=== PATIENT | female | born 1955 | race Caucasian/White ===

== ENCOUNTER 2019-05-05 11:25 | Inpatient (IN) | payer OTHER ==
[2019-05-04 08:44] VITALS: BMI 25.7
[2019-05-05 12:27] LABS: INR 0.87 (0.83-1.09); PROTHROMBIN TIME (PATIENT) 10.3 SEC (9.7-13.0)
[2019-05-05 12:30] LABS: ACTIVATED PTT 30.9 SECONDS (25.2-36.5)
[2019-05-05] MEDS ORDERED: HEPARIN NA (PORCINE) 5,000 UNITS/ML 1ML VIAL ONE ×2 (14:50→17:39)
[2019-05-05] MEDS ORDERED: THROMBIN (BOVINE) 5,000 UNIT VIAL TP ONE ×3 (14:50→19:34)
[2019-05-05] MEDS ORDERED: ROCURONIUM BROMIDE 50 MG/5 ML VIAL ONE (17:39)
[2019-05-05] MEDS ORDERED: fentaNYL CITRATE 250 MCG/5 ML VIAL ONE ×2 (17:39)
[2019-05-05] MEDS ORDERED: PROPOFOL 20 ML ONE ×5 (17:39)
[2019-05-05] MEDS ORDERED: SUCCINYLCHOLINE CHLORIDE 200 MG/10 ML SYRINGE ONE (17:48)
[2019-05-05] MEDS ORDERED: VANCOMYCIN 1,000 MG VIAL (RESTRICTED TO ID ONLY) IVPB ONE (18:20)
[2019-05-05] MEDS ORDERED: ceFAZolin SODIUM 1 GM VIAL IVPB ONE ×2 (18:20→21:15)
[2019-05-05] MEDS ORDERED: MIDAZOLAM HCL 2 MG/2 ML SINGLE DOSE VIAL ONE (18:23)
[2019-05-05] MEDS ORDERED: TRANEXAMIC ACID 1000 MG/10 ML VIAL ONE ×2 (18:32→19:17)
[2019-05-05] MEDS ORDERED: hydrALAZINE HCL 20 MG/ML VIAL ONE (19:20)
[2019-05-05] MEDS ORDERED: ONDANSETRON 4 MG/2 ML VIAL ONE (19:59)
[2019-05-05] MEDS ORDERED: KETOROLAC TROMETHAMINE 30 MG/1 ML VIAL ONE (19:59)
[2019-05-05] MEDS ORDERED: DEXAMETHASONE SOD PHOSPHATE 4 MG/1 ML VIAL ONE ×3 (19:59→20:00)
[2019-05-05] MEDS ORDERED: VANCOMYCIN 1,000 MG VIAL (RESTRICTED TO ID ONLY) ONE (20:00)
[2019-05-05] MEDS ORDERED: DESFLURANE GAS 240 ML BOTTLE IH ONE (20:11)
[2019-05-05] MEDS ORDERED: ceFAZolin SODIUM 1 GM VIAL ONE (20:53)
[2019-05-05] MEDS ORDERED: ONDANSETRON 4 MG/2 ML VIAL IVPUSH PRN ×2 (21:35→21:54)
[2019-05-05] MEDS ORDERED: PROMETHAZINE HCL 25 MG/1 ML VIAL IVPB PRN (21:35)
[2019-05-05] MEDS ORDERED: oxyCODONE HCL 5 MG TABLET PO PRN ×3 (21:35→21:54)
[2019-05-05] MEDS ORDERED: HYDROmorphone *PCA* 10MG/50ML DISP.SYRIN PCA ONE (21:40)
[2019-05-05] MEDS ORDERED: HYDROmorphone *PCA* 10MG/50ML DISP.SYRIN PCA SCH (21:45)
[2019-05-05] MEDS ORDERED: CYCLOBENZAPRINE HCL 10 MG TABLET (FP) PO PRN (21:51)
[2019-05-05] MEDS ORDERED: LACTATED RINGERS SOLUTION 1,000 ML IV SCH (22:00)
[2019-05-05] MEDS ORDERED: PATIENT'S OWN MEDICATION (NON-FORMULARY) (Ibandronate Sodium [Ibandronate Sodium] 150 MG) PO SCH (22:00)
--- NOTE | 2019-05-05 22:07 | PN ---
Progress Note (short form) - Note Progress Note: 64F s/p C4-C5, C5-C6 discectomies; C4, C5, C6 partial corpectomies; C4-C5, C5- C6 anterior cervical decompression and instrumented fusion POD #0. C6-C7 ACDF cancelled due to osteopenia & blood loss. -Admit to ICU x 24 hrs. for airway observation. -Maintain head of bed 30-45 degrees. -Pain medication: per anaesthesia team; NO NSAID's. -DVT PPx: -Mechanical only: LORI's, SCD's. -Post-op Ancef x 2 doses. -Decadron 10mg IV x 1 01/04/2019 at 7am. -f/u AM labs. -Incentive spirometry. -PT/OT/Rehab, OOB. -PWB B/L UE: -No heavy lifting, bending or twisting (5lbs max). -WBAT B/L LE. -d/c Ko catheter at 9AM tomorrow (05/06/2019); f/u TOV (8 hours max). -Keep dressing clean & dry. -Advance diet as tolerated. -B/L UE & LE NV checks. -Care per ICU & primary medical hospitalist Dr. Pritesh Mckeon. -Discharge planning: f/u [facility] [place] office Friday04/13/2018; call for appointment; . Kal Long MD (Orthopaedic Surgery).
--- NOTE | 2019-05-05 22:13 | OP ---
Operative Note - Note: Operative Date: 05/05/19 Pre-Operative Diagnosis: 1. 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 2. 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 3. Multi- level segmental instability cervical spine. 4. Cervical spinal stenosis. 5. Frequent falls Operation: 1. C4-C5, C5-C6 anterior cervical discectomy and fusion. 2. C4, C5, C6 partial corpectomies. 3. C4-C5, C5-C6 intervertebral mechanical devices. 4. C4-C6 anterior instrumentation. 5. Bone autograft. 6. Bone allograft Findings: Severe osteopenia; soft bone. Implants: Cages: C4-C5: Fortilink Tetrafuse, #10. C5-C6: Fortilink Tetrafuse, #8. Plate: Precision Spine Slimplicity, 29mm. Screws: 6 x 4x12mm Post-Operative Diagnosis: Same as Pre-op Surgeon: Kal Long Medical Logistics Specialist: Kareem Long Anesthesiologist/RN INTERNAL MEDICINE: Aime Baker Anesthesia: General Specimens Removed: C4-C5, C5-C6 disc Estimated Blood Loss (mls): 100 Fluid Volume Replaced (mls): 2,100 (Crystalloid) Operative Report Dictated: Yes
[2019-05-05] MEDS: ACETAMINOPHEN 1000 MG/100 ML VIAL (NON FORMULARY) IVPB SCH (22:20)
--- NOTE | 2019-05-05 23:49 | CONSULT ---
Consultation: CONSULT Service: ICU resident HISTORY OF PRESENT ILLNESS: 64yo F with h/o chronic neck/back pain, hypothyroidism, HLD who presents to the ICU s/p anterior approach C4-5, C5-6 discectomies and corpectomies and fusion with Dr. Long. Pt reports post-operative recovery going well without any significant pain. Pt reports she's had longstanding neck pain with reduction on upper arm ROM and intermittent parasthesias of her b/l hands. Currently she reports that the parasthesias are remitted and that she can move her upper arms better. Pt denies any nausea currently, chest pain, shortness of breath. Her pain is well controlled. Intraoperatively pt received ~2L IVF, no cellsaver, and had an estimated ~150cc of EBL. REVIEW OF SYSTEMS: As per HPI. PHYSICAL EXAMINATION Vital Signs - 24 hr 05/05/19 05/05/19 05/05/19 12:51 12:55 21:00 Temperature 97.8 F Pulse Rate 61 Respiratory 18 Rate Blood Pressure 125/70 O2 Sat by Pulse 99 100 Oximetry (%) 05/05/19 05/05/19 05/05/19 21:28 21:40 21:55 Temperature 98.3 F Pulse Rate 81 75 74 Respiratory 16 16 16 Rate Blood Pressure 127/61 123/67 125/68 O2 Sat by Pulse 98 99 100 Oximetry (%) 05/05/19 05/05/19 05/05/19 22:10 22:25 22:40 Temperature 98.2 F Pulse Rate 75 72 75 Respiratory 16 14 16 Rate Blood Pressure 125/68 123/64 111/65 O2 Sat by Pulse 100 100 100 Oximetry (%) *pt examined in PACU post-operatively* GENERAL: NAD, Awake, alert, and fully oriented, HEENT: NC/AT, EOMI, CROW, MMM NECK: Bandage noted on anterior neck without any drainage noted. No JVD appreciated LUNGS: CTA bilaterally. No wheezes, and no crackles. No accessory muscle use. HEART: RRR, normal S1 and S2 without murmur ABDOMEN: Soft, NT/ND, normoactive bowel sounds, no guarding. No hepatomegaly. EXTREMITIES: 2+ DP pulses, warm, well-perfused. No calf tenderness. No peripheral edema. NEUROLOGICAL: children's court magistrate II-XII intact. Strength in handgrip 5/5 symmetrically, lower extremity strength 5/5 b/l. Sensation intact throughout. Normal speech. Gait not tested PSYCHIATRIC: Cooperative. Good eye contact. Appropriate mood and affect. SKIN: Warm, dry, no rashes noted. Laboratory Results 05/05/19 05/05/19 05/05/19 11:43 11:43 13:30 PT with INR 10.30 INR 0.87 PTT (Actin FS) 30.9 Blood Type AB POSITIVE AB POSITIVE Antibody Screen Negative Active Medications Generic Name Dose Route Start Last Admin Trade Name Freq PRN Reason Stop Dose Admin Acetaminophen 1,000 mg 05/05/19 22:00 05/05/19 22:20 Ofirmev Injection - IVPB 05/06/19 14:01 1,000 mg Q8H JAGUAR Administration Cholecalciferol 5,000 unit 05/06/19 10:00 Vitamin D3 - PO DAILY JAGUAR Cyanocobalamin 1,000 mcg 05/06/19 10:00 Vitamin B12 - PO DAILY JAGUAR Cyclobenzaprine HCl 10 mg 05/05/19 21:51 Flexeril - PO PRN PRN INSOMNIA Dexamethasone Sodium Phosphate 10 mg 05/06/19 06:00 Decadron Injection - IVPUSH 05/06/19 06:01 ONCE ONE Fentanyl 50 mcg 05/05/19 21:35 Sublimaze Injection - IVPUSH [id number] PRN PAIN-PACU ORDER X 4 DOSES ONLY Fluticasone Propionate 1 spray 05/06/19 10:00 Flonase - NS DAILY JAGUAR Hydromorphone HCl 10 mg 05/05/19 21:45 05/05/19 21:40 Dilaudid Size Stamper - RAW CHEESE WORKER 05/12/19 21:36 10 mg RAW CHEESE WORKER JAGUAR Administration Protocol Cefazolin Sodium 1 gm/ 50 mls @ 100 mls/hr 05/06/19 05:00 Dextrose IVPB 05/06/19 13:29 Q8H JAGUAR Lactated Ringer's 1,000 mls @ 125 mls/hr 05/05/19 22:00 05/05/19 23:03 Lactated Ringers Solution IV 125 mls/hr ASDIR JAGUAR Administration Levothyroxine Sodium 75 mcg 05/06/19 07:00 Synthroid - PO DAILY@0700 JAGUAR Non-Formulary Medication 200 mcg 05/06/19 10:00 Selenium [Selenium] PO DAILY JAGUAR Ondansetron HCl 4 mg 05/05/19 21:35 Zofran Injection IVPUSH Q6H PRN NAUSEA AND/OR VOMITING Ondansetron HCl 4 mg 05/05/19 21:54 Zofran Injection IVPUSH Q6H PRN NAUSEA AND/OR VOMITING Oxycodone HCl 5 mg 05/05/19 21:54 Roxicodone - PO Q4H PRN PAIN LEVEL 1-5 Oxycodone HCl 10 mg 05/05/19 21:54 Roxicodone - PO Q4H PRN PAIN LEVEL 6-10 Promethazine HCl 12.5 mg 05/05/19 21:35 Phenergan Injection - IVPB Q6H PRN NAUSEA-FOR RESCUE AFTER 15 MIN Rosuvastatin Calcium 5 mg 05/06/19 10:00 Crestor - PO DAILY JAGUAR ASSESSMENT/PLAN: Cervical spine discectomies with corpectomies (anterior approach) HLD Hypothyroidism --Monitor in ICU for airway --HOB elevation 30 degrees --Pain control per RAW CHEESE WORKER pump/anesthesia, tylenol available PRN if needed --Will continue post-operative ABX --Routine AM labs ordered --D/c berta approximately at 9am tomorrow --Neuro checks --Will continue home Crestor 5mg PO HS --Will continue home Synthroid 75mcg qdaily FEN: Fluids: None currently Nutrition: Will advance as tolerated PPX: DVT - SCDs GI - Not indicated Dispo: Monitor in ICU for airway Aime Hogan, DO - IM PGY-2 Visit type - Emergency Visit Emergency Visit: Yes ED Registration Date: 05/05/19 Care time: The patient presented to the Emergency Department on the above date and was hospitalized for further evaluation of their emergent condition. - New Patient This patient is new to me today: Yes Date on this admission: 05/06/19 - Critical Care Critical Care patient: Yes Total Critical Care Time (in minutes): 35 Critical Care Statement: The care of this patient involved high complexity decision making to prevent further life threatening deterioration of the patient 's condition and/or to evaluate & treat vital organ system(s) failure or risk of failure.
[2019-05-06] MEDS ORDERED: DEXTROSE 5%-WATER - 50 ML IVPB ONE ×2 (05:18→11:56)
[2019-05-06] MEDS ORDERED: ceFAZolin SODIUM 1 GM VIAL ONE ×2 (05:18→11:56)
[2019-05-06] MEDS: ACETAMINOPHEN 1000 MG/100 ML VIAL (NON FORMULARY) IVPB SCH (05:34)
[2019-05-06] MEDS: CEFAZOLIN 1 GM in DEXTROSE 5%-WATER - 50 ML IVPB SCH ×2 (05:34→12:17)
[2019-05-06] MEDS ORDERED: DEXAMETHASONE SOD PHOSPHATE 10 MG/1 ML VIAL IVPUSH ONE (06:00)
[2019-05-06 06:40] LABS: HEMOGLOBIN 13.5 GM/dL (10.7-15.3); MCHC 32.2 g/dl (32.0-36.0); MEAN CELL VOLUME 90.1 fl (80-96); MEAN PLT VOLUME 9.5 fl (7.5-11.1); PLATELET COUNT 226 K/MM3 (134-434); RBC 4.66 M/mm3 (3.60-5.2); RDW 13.3 % (11.6-15.6); WHITE BLOOD COUNT 11.7 K/mm3 (4.0-10.0)
[2019-05-06 06:46] LABS: CALCIUM 8.9 mg/dL (8.5-10.1); CREATININE 0.7 mg/dL (0.55-1.3); MAGNESIUM 2.2 mg/dL (1.8-2.4); POTASSIUM 4.5 mmol/L (3.5-5.1)
[2019-05-06] MEDS ORDERED: LEVOTHYROXINE NA 75 MCG TABLET (FP) PO SCH (07:00)
--- NOTE | 2019-05-06 08:33 | PN ---
Physical Exam: SUBJECTIVE: Patient seen and examined at bedside this morning. She is POD #1 s/ p C4-C5, C5-C6 anterior cervical discectomy and fusion, C4, C5, C6 partial corpectomies, C4-C5, C5-C6 intervertebral mechanical devices, C4-C6 anterior instrumentation. Patient afebrile overnight. No acute overnight events. Patient tolerating diet this morning OBJECTIVE: Vital Signs Period Temp Pulse Resp BP Sys/Egan Pulse Ox Last 24 Hr 97.6 F-98.3 F 61-81 12-20 102-127/61-70 98-100 GENERAL: The patient is awake, alert, and fully oriented, in no acute distress. HEAD: Normocephalic, atraumatic EYES: PERRL, extraocular movements intact, sclera anicteric, conjunctiva clear. ENT: Oropharynx clear without exudates, moist mucous membranes. NECK: Trachea midline, supple. Rigid cervical collar in place. No stridor auscultated bilaterally. LUNGS: Breath sounds equal, clear to auscultation bilaterally. No wheezes, no crackles. No accessory muscle use. HEART: Regular rate and rhythm, S1, S2 without murmur, rub or gallop. ABDOMEN: Soft, nontender, nondistended. Normoactive bowel sounds. No guarding, no rebound tenderness. No hepatosplenomegaly appreciated. EXTREMITIES: 2+ radial, dorsalis pedis pulses bilateral upper and lower extremities. Warm, well-perfused. No lower extremity edema. NEUROLOGICAL: Cranial nerves II through XII grossly intact. Normal speech. Strength 5/5 bilateral upper and lower extremities. PSYCH: Normal mood, normal affect upon my encounter today. SKIN: Warm, dry. Surgical area bandaged clean, dry. Laboratory Results - last 24 hr 05/05/19 05/05/19 05/05/19 11:43 11:43 13:30 WBC RBC Hgb Hct MCV MCH MCHC RDW Plt Count MPV PT with INR 10.30 INR 0.87 PTT (Actin FS) 30.9 Sodium Potassium Chloride Carbon Dioxide Anion Gap BUN Creatinine Est GFR (CKD-EPI)AfAm Est GFR (CKD-EPI)NonAf Random Glucose Calcium Magnesium Blood Type AB POSITIVE AB POSITIVE Antibody Screen Negative 05/06/19 05/06/19 05:23 05:23 WBC 11.7 H RBC 4.66 Hgb 13.5 Hct 42.0 MCV 90.1 MCH 29.0 MCHC 32.2 RDW 13.3 Plt Count 226 MPV 9.5 PT with INR INR PTT (Actin FS) Sodium 138 Potassium 4.5 Chloride 107 Carbon Dioxide 24 Anion Gap 7 L BUN 14 Creatinine 0.7 Est GFR (CKD-EPI)AfAm 106.12 Est GFR (CKD-EPI)NonAf 91.56 Random Glucose 105 Calcium 8.9 Magnesium 2.2 Blood Type Antibody Screen Active Medications Generic Name Dose Route Start Last Admin Trade Name Freq PRN Reason Stop Dose Admin Acetaminophen 1,000 mg 05/05/19 22:00 05/06/19 05:34 Ofirmev Injection - IVPB 05/06/19 14:01 1,000 mg Q8H JAGUAR Administration Cholecalciferol 5,000 unit 05/06/19 10:00 Vitamin D3 - PO DAILY JAGUAR Cyanocobalamin 1,000 mcg 05/06/19 10:00 Vitamin B12 - PO DAILY JAGUAR Cyclobenzaprine HCl 10 mg 05/05/19 21:51 Flexeril - PO PRN PRN INSOMNIA Fentanyl 50 mcg 05/05/19 21:35 Sublimaze Injection - IVPUSH [id number] PRN PAIN-PACU ORDER X 4 DOSES ONLY Fluticasone Propionate 1 spray 05/06/19 10:00 Flonase - NS DAILY JAGUAR Hydromorphone HCl 10 mg 05/05/19 21:45 05/05/19 21:40 Dilaudid Qc Tech - EXTENSION CLERK 05/12/19 21:36 10 mg EXTENSION CLERK JAGUAR Administration Protocol Cefazolin Sodium 1 gm/ 50 mls @ 100 mls/hr 05/06/19 05:00 05/06/19 05:34 Dextrose IVPB 05/06/19 13:29 100 mls/hr Q8H JAGUAR Administration Lactated Ringer's 1,000 mls @ 125 mls/hr 05/05/19 22:00 05/05/19 23:03 Lactated Ringers Solution IV 125 mls/hr ASDIR JAGUAR Administration Levothyroxine Sodium 75 mcg 05/06/19 07:00 05/06/19 06:44 Synthroid - PO 75 mcg DAILY@0700 JAGUAR Administration Non-Formulary Medication 200 mcg 05/06/19 10:00 Selenium [Selenium] PO DAILY JAGUAR Ondansetron HCl 4 mg 05/05/19 21:35 Zofran Injection IVPUSH Q6H PRN NAUSEA AND/OR VOMITING Ondansetron HCl 4 mg 05/05/19 21:54 Zofran Injection IVPUSH Q6H PRN NAUSEA AND/OR VOMITING Oxycodone HCl 5 mg 05/05/19 21:54 Roxicodone - PO Q4H PRN PAIN LEVEL 1-5 Oxycodone HCl 10 mg 05/05/19 21:54 Roxicodone - PO Q4H PRN PAIN LEVEL 6-10 Promethazine HCl 12.5 mg 05/05/19 21:35 Phenergan Injection - IVPB Q6H PRN NAUSEA-FOR RESCUE AFTER 15 MIN Rosuvastatin Calcium 5 mg 05/06/19 10:00 Crestor - PO DAILY JAGUAR ASSESSMENT/PLAN: Patient is a 64 year old female with history of hyperlipidemia, hypothyroidism admitted to ICU s/p C4-C5, C5-C6 anterior cervical discectomy and fusion, C4, C5 , C6 partial corpectomies, C4-C5, C5-C6 intervertebral mechanical devices, C4- C6 anterior instrumentation. Neurological -Patient is awake, alert, fully oriented. Currently on no sedating medications. -Monitor for signs of mental status changes. Pulmonary -Patient saturating well on room air. -Monitor oxygen saturation closely Cardiac -History of hyperlipidemia -No overnight Telemetry events. Patient is not on any pressor medications. -Rosuvastatin 5mg PO daily Gastrointestinal -Patient is tolerating soft diet, without abdominal pain, nausea, vomiting. -Zofran 4mg IV Q6H PRN for nausea Musculoskeletal -Patient is POD #1 s/p C4-C5, C5-C6 anterior cervical discectomy and fusion, C4 , C5, C6 partial corpectomies, C4-C5, C5-C6 intervertebral mechanical devices, C4-C6 anterior instrumentation. -Cervical collar in place. -Orthopedic surgery recommendations (Dr. Long) appreciated -Patient walked with physical therapy today -EXTENSION CLERK pump, Ofirmev for pain control. Endocrine -History of hypothyroidism -Levothyroxine 75mcg PO daily Infectious disease -Patient received two doses of Cefazolin 1 gram IV Q8H postoperatively FEN -No IV fluids indicated -Within normal limits. Follow CMP -Soft diet, advance as tolerated Prophylaxis -SCDs bilateral lower extremities. NO chemical anticoagulation per surgery. Disposition -Patient to be discharged home today, per orthopedic surgery. Visit type - Emergency Visit Emergency Visit: Yes ED Registration Date: 05/05/19 Care time: The patient presented to the Emergency Department on the above date and was hospitalized for further evaluation of their emergent condition. - New Patient This patient is new to me today: Yes Date on this admission: 05/06/19 - Critical Care Critical Care patient: Yes Total Critical Care Time (in minutes): 35 Critical Care Statement: The care of this patient involved high complexity decision making to prevent further life threatening deterioration of the patient 's condition and/or to evaluate & treat vital organ system(s) failure or risk of failure. - Discharge Referral Referred to [facility] Med P.C.: No
[2019-05-06] MEDS ORDERED: PT OWN MED DRAWER 7, Y5N ONE ×2 (09:45→11:14)
--- NOTE | 2019-05-06 09:54 | PN ---
HC Provider Note Provider Note: Anesthesia Post-op Pt found in bed awake alert -- reports feeling well Pt denies n/v, urinary retention, pruitis Tolerating po - pain well controlled -- d/c ASSISTANT PROFESSOR OF ECONOMICS VSS no apparent anesthesia complications Flaca Alvarenga.
[2019-05-06] MEDS ORDERED: PATIENT'S OWN MEDICATION (NON-FORMULARY) (Cyanocobalamin (Vitamin B-12) [Vitamin B-12] 1,0 PO SCH (10:00)
[2019-05-06] MEDS ORDERED: FLUTICASONE PROP 0.05% 16 GM NASAL SPRAY NS SCH (10:00)
[2019-05-06] MEDS ORDERED: CYANOCOBALAMIN 1,000 MCG TABLET (FP) PO SCH (10:00)
[2019-05-06] MEDS ORDERED: ROSUVASTATIN CA 5 MG TABLET (FP) PO SCH (10:00)
[2019-05-06] MEDS ORDERED: CHOLECALCIFEROL (VIT D3) 1,000 UNIT (25 MCG) TABLET PO SCH (10:00)
[2019-05-06] MEDS ORDERED: SELENIUM 200 MCG PO SCH (10:00)
[2019-05-06 11:29] VITALS: TEMP 98.2
--- NOTE | 2019-05-06 12:08 | DS ---
Physical Examination Vital Signs: Vital Signs Temperature 98.2 F 05/06/19 10:00 Pulse Rate 66 05/06/19 10:00 Respiratory Rate 14 05/06/19 10:00 Blood Pressure 124/66 05/06/19 10:00 O2 Sat by Pulse Oximetry (%) 99 05/06/19 09:00 Constitutional: Yes: Well Nourished, No Distress, Calm Eyes: Yes: WNL, Conjunctiva Clear, EOM Intact HENT: Yes: WNL, Atraumatic, Normocephalic Neck: Yes: WNL, Supple, Trachea Midline, Rigid, Tenderness Cardiovascular: Yes: WNL, Regular Rate and Rhythm Respiratory: Yes: WNL, Regular, CTA Bilaterally Gastrointestinal: Yes: WNL, Normal Bowel Sounds ...Rectal Exam: Yes: Deferred Renal/: Yes: WNL Breast(s): Yes: WNL Musculoskeletal: Yes: WNL Extremities: Yes: WNL Edema: No Integumentary: Yes: WNL Wound/Incision: Yes: Clean/Dry, Well Approximated Neurological: Yes: WNL Psychiatric: Yes: WNL Labs: CBC, BMP 05/06/19 05:23 05/06/19 05:23 Discharge Summary Reason For Visit: CERVICAL DISC DISORDER Current Active Problems Back pain (Acute) Back pain (Acute) Hospital Course: C4-C5, C5-C6 anterior cervical discectomy and fusion. 2. C4, C5, C6 partial corpectomies. 3. C4-C5, C5-C6 intervertebral mechanical devices. 4. C4-C6 anterior instrumentation. 5. Bone autograft. 6. Bone allograft Condition: Good - Instructions Diet, Activity, Other Instructions: regular diet see Dr Kal Long next or friday at the [place] office Disposition: HOME - Home Medications Comprehensive Discharge Medication List: Ambulatory Orders Cetirizine HCl [Zyrtec -] 10 mg PO DAILY 05/04/19 Cholecalciferol (Vitamin D3) [Vitamin D3] 5,000 unit PO DAILY 05/04/19 Cyanocobalamin (Vitamin B-12) [Vitamin B-12] 1,000 mcg PO DAILY 05/04/19 Cyclobenzaprine HCl 10 mg PO PRN PRN 05/04/19 Fluticasone Prop 0.05% Nasal [Flonase -] 1 spray NS DAILY 05/04/19 Ibandronate Sodium 150 mg PO MONTHLY 05/04/19 Levothyroxine [Synthroid -] 75 mcg PO DAILY 05/04/19 Rosuvastatin [Crestor -] 5 mg PO DAILY 05/04/19 Selenium 200 mcg PO DAILY 05/04/19
--- NOTE | 2019-05-06 13:49 | PN ---
Teaching Attending Note Name of Resident: Everton Wagner ATTENDING PHYSICIAN STATEMENT I saw and evaluated the patient. I reviewed the resident's note and discussed the case with the resident. I agree with the resident's findings and plan as documented. SUBJECTIVE: Patient seen and examined in the ICU. Awake and alert. No CP or SOB. Intake & Output 05/03/19 05/04/19 05/05/19 05/06/19 23:59 23:59 23:59 23:59 Intake Total 2400 Output Total 1100 Balance 1300 Weight 150 lb 150 lb Last Vital Signs Temp Pulse Resp BP Pulse Ox 98.2 F 66 14 124/66 99 05/06/19 10:00 05/06/19 10:00 05/06/19 10:00 05/06/19 10:00 05/06/19 09:00 Active Medications Acetaminophen (Ofirmev Injection -) 1,000 mg IVPB Q8H [facility] Stop: 05/06/19 14:01 Last Admin: 05/06/19 05:34 Dose: 1,000 mg Cholecalciferol (Vitamin D3 -) 5,000 unit PO DAILY [facility] Last Admin: 05/06/19 10:09 Dose: 5,000 unit Cyanocobalamin (Vitamin B12 -) 1,000 mcg PO DAILY [facility] Last Admin: 05/06/19 12:16 Dose: 1,000 mcg Cyclobenzaprine HCl (Flexeril -) 10 mg PO PRN PRN PRN Reason: INSOMNIA Fentanyl (Sublimaze Injection -) 50 mcg IVPUSH [id number] PRN PRN Reason: PAIN-PACU ORDER X 4 DOSES ONLY Fluticasone Propionate (Flonase -) 1 spray NS DAILY [facility] Last Admin: 05/06/19 10:08 Dose: 1 spray Lactated Ringer's (Lactated Ringers Solution) 1,000 mls @ 125 mls/hr IV ASDIR [facility] Last Admin: 05/05/19 23:03 Dose: 125 mls/hr Levothyroxine Sodium (Synthroid -) 75 mcg PO DAILY@0700 [facility] Last Admin: 05/06/19 06:44 Dose: 75 mcg Non-Formulary Medication (Selenium [Selenium]) 200 mcg PO DAILY [facility] Ondansetron HCl (Zofran Injection) 4 mg IVPUSH Q6H PRN PRN Reason: NAUSEA AND/OR VOMITING Ondansetron HCl (Zofran Injection) 4 mg IVPUSH Q6H PRN PRN Reason: NAUSEA AND/OR VOMITING Oxycodone HCl (Roxicodone -) 5 mg PO Q4H PRN PRN Reason: PAIN LEVEL 1-5 Oxycodone HCl (Roxicodone -) 10 mg PO Q4H PRN PRN Reason: PAIN LEVEL 6-10 Promethazine HCl (Phenergan Injection -) 12.5 mg IVPB Q6H PRN PRN Reason: NAUSEA-FOR RESCUE AFTER 15 MIN Rosuvastatin Calcium (Crestor -) 5 mg PO DAILY JAGUAR Last Admin: 05/06/19 12:16 Dose: 5 mg GENERAL: The patient is awake, alert, and fully oriented, in no acute distress. HEAD: Normocephalic, atraumatic EYES: PERRL, extraocular movements intact, sclera anicteric, conjunctiva clear. ENT: Oropharynx clear without exudates, moist mucous membranes. NECK: Trachea midline, supple. Rigid cervical collar in place. No stridor auscultated bilaterally. LUNGS: Breath sounds equal, clear to auscultation bilaterally. No wheezes, no crackles. No accessory muscle use. HEART: Regular rate and rhythm, S1, S2 without murmur, rub or gallop. ABDOMEN: Soft, nontender, nondistended. Normoactive bowel sounds. No guarding, no rebound tenderness. No hepatosplenomegaly appreciated. EXTREMITIES: 2+ radial, dorsalis pedis pulses bilateral upper and lower extremities. Warm, well-perfused. No lower extremity edema. NEUROLOGICAL: Non-focal PSYCH: Normal mood, normal affect upon my encounter today. SKIN: Warm, dry. Surgical area bandaged clean, dry. Laboratory Results - last 24 hr 05/05/19 05/05/19 05/05/19 11:43 11:43 13:30 WBC RBC Hgb Hct MCV MCH MCHC RDW Plt Count MPV PT with INR 10.30 INR 0.87 PTT (Actin FS) 30.9 Sodium Potassium Chloride Carbon Dioxide Anion Gap BUN Creatinine Est GFR (CKD-EPI)AfAm Est GFR (CKD-EPI)NonAf Random Glucose Calcium Magnesium Blood Type AB POSITIVE AB POSITIVE Antibody Screen Negative 05/06/19 05/06/19 05:23 05:23 WBC 11.7 H RBC 4.66 Hgb 13.5 Hct 42.0 MCV 90.1 MCH 29.0 MCHC 32.2 RDW 13.3 Plt Count 226 MPV 9.5 PT with INR INR PTT (Actin FS) Sodium 138 Potassium 4.5 Chloride 107 Carbon Dioxide 24 Anion Gap 7 L BUN 14 Creatinine 0.7 Est GFR (CKD-EPI)AfAm 106.12 Est GFR (CKD-EPI)NonAf 91.56 Random Glucose 105 Calcium 8.9 Magnesium 2.2 Blood Type Antibody Screen ASSESSMENT/PLAN: POD #1 C4-C5, C5-C6 anterior cervical discectomy and fusion, C4, C5, C6 partial corpectomies, C4-C5, C5-C6 intervertebral mechanical devices, C4-C6 anterior instrumentation. Pain control PO as tolerated No NSAIDS OOB To chair PT Dr Hernandez
[2019-05-06 13:54] VITALS: BP 117/65; PULSE 68
--- NOTE | 2019-05-07 00:33 | OP ---
DATE OF OPERATION: 05/05/2019 SURGEON: Kal Long MD PERSONAL INJURY ATTORNEY: Kareem Long MD PREOPERATIVE DIAGNOSIS: 1. 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 B. Radiculopathy. 2. Cervical spinal stenosis with neurogenic claudication. 3. Cervical kyphosis. 4. Segmental instability. 5. Disk osteophyte complex C4-C5, C5-C6. POSTOPERATIVE DIAGNOSIS: 1. 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 B. Radiculopathy. 2. Cervical spinal stenosis with neurogenic claudication. 3. Cervical kyphosis. 4. Segmental instability. 5. Disk osteophyte complex C4-C5, C5-C6. SURGICAL PROCEDURE: 1. C4-C5, C5-C6 discectomy & anterior arthrodesis (88475, 68595). 2. C4, C5, C6 partial corpectomies (67616, 46747 x 2). 3. Insertion of biomechanical devices C4-C5, C5-C6 (29453 x 2). 4. C4-C6 anterior instrumentation (42000). 5. Bone autograft (43956). 6. Bone allograft (13215). 7. Intraoperative biplanar fluoroscopy. FINDINGS: Osteopenic and very vascular bone bed. IMPLANTS: 1. Cages: FortiLink Tetrafuse #10 (C4-C5), & #8 (C5-C6). 2. Plate: Precision Spine Simplicity 29mm. 3. Screws: 6 x 4x12mm. ANESTHESIOLOGIST: Aime Baker MD ANESTHESIA: General endotracheal tube anesthesia. POSITION: Supine. INCISION: Right oblique anterior. ESTIMATED BLOOD LOSS: 100cc. INTRAVENOUS FLUID: Crystalloid, 2.1L. SPECIMENS: C4-C5, C5-C6 disc. DRAINS: None. COMPLICATIONS: None. URINE OUTPUT: See anesthesia record. BACTERIOLOGY: None. CLOSURE: 2-0 Vicryl and 3-0 Biosyn absorbable suture. INDICATIONS: The patient is a 64-year-old female who was indicated for anterior cervical decompression and instrumented fusion to prevent the progression of already worsening neurological decline. The patient was identified in the holding area by her arm band. A long discussion was held with the patient (in the presence of her ) regarding the risks, benefits, and alternatives of the above- named procedure. The risks include, but are not limited to: Pain, bleeding, infection, damage to surrounding structures (including nerves, blood vessels, skin, ligaments, tendons, and bone), dysphagia, dysphonia, nerve palsy, wound complications, pseudarthrosis, failure of fusion, failure of hardware/implants/ reduction, need for further surgery, blood clots, myocardial infarction, pulmonary embolism, cerebrovascular event, anesthesia complications, neurological injury, loss of function, and . Benefits as mentioned above. Alternatives include no surgery. All questions were answered. The patient understood and agreed to the procedure. Informed consent was obtained, witnessed, and verified. The patient was taken to the operating room after being seen by the anesthesia and nursing staff. PROCEDURE: The patient was brought into the operating room, placed on the OR table and secured with a safety strap. Consent and the operative site was again verified with the patient and nursing and anesthesia staff. Anesthesia was then administered without complications including IV Ancef, f IV vancomycin, and 1 g of TXA. A time-out was then done led by , the attending surgeon. The patient was positioned in the supine position with arms tucked and placed under gentle traction using tape over her shoulders. All bony prominences were very well padded. A bump was placed beneath the scapulae to facilitate extension of the patients neck. A C-arm fluoroscopy unit was positioned perpendicularly to the table and maintained at the level of the head, except when needed. The intended surgical level was confirmed using fluoroscopy, and a deep neck crease in the lines of Maia at this level was targeted for incision. Intra-operative neural monitoring revealed no change between pre- and post- positional SSEP & MEP baseline readings. The operative site was then prepped and draped in the standard sterile fashion using betadine prep and scrub, wiped off with alcohol, and Duraprep applied. Pre-operative imaging was available for intra-operative evaluation. Time-out was again done, and the case began. An oblique anterior incision was made on the right side of the patients neck in the lines of Maia in standard fashion. Dissection was carried through the investing layer of fascia and finger palpation was used to create a plane lateral to the strap muscles between the carotid sheath and the viscera. Next, the esophagus and trachea were visualized as was the carotid sheath. Hand-held retractors were used to retract these structures safely out of the way, allowing direct access to the anterior cervical spine. The prevertebral fascia overlying the anterior cervical spine was then split using peanut swabs. An 18- gauge spinal needle was bent and used to help localize the C4-C5 disc space under fluoroscopy. This helped us target the indicated surgical levels. Next, the medial borders of the Longus Coli musculature were gently released over the anterolateral borders of the vertebral bodies and disc spaces using monopolar electrocautery. A self-retaining retractor system was used with the teeth of the blades retracting the belly of the longus coli muscles, and with the retractors themselves safely retracting the carotid sheath laterally and viscera medially. Throughout the exposure, the soft tissue and bone bed leaked a bit more bloody than usual. One 12mm Waxhaw pin was then placed into the center of the vertebral bodies of C4 and C5. The Waxhaw pin placement was confirmed via fluorscopy. A Waxhaw pin distractor system was applied with no distraction at this stage. Additionally, the distractor barrels served as superior and inferior soft tissue retractors. The microscope was then introduced. Using monopolar electrocautery, the annulus of the C4-C5 disc was incised. The disc was morselized using a curette and excised using a pituitary rongeur. Next, a 40mm smooth susan-tipped britney was used to perform partial corpectomies of the caudal C4 vertebral body and the cephalad C5 vertebral body. This was necessary to facilitate adequate exposure and decompression of the spinal cord. Continuous cold saline solution was utilized throughout all britney work. The resection of most remaining bone, and the posterior longitudinal ligament (PLL), was achieved utilizing Kerrison rongeur upcuts. A small, angled, ball-tipped probe was utilized to ensure that all PLL complex was free from adhesion to the theca prior to excision. There was no evidence of OPLL. The ball-tipped probe was also used to ensure that the bilateral C4-C5 neuroforaminae were patent. Our decompression of the cervical spine was successfully achieved. At this point, gentle distraction was applied to the Waxhaw pin distractor. Next, trial implants were placed into the defect space and a size 10 RTI Fortilink Tetrafuse cage was then selected to fit the distracted space. The cage was filled with a combination of autologous bone shavings and demineralized bone matrix allograft putty. The cage was then gently tapped into position. This completed the anterior arthrodesis. Waxhaw pin distraction was released, allowing ligamentotaxis to provide a snug interference fit of the cage. This was ensured by using a cage-phipps. These steps were repeated one level lower at C5-C6. There, an 8m RTI Fortilink Tetrafuse cage was inserted. The Waxhaw pins had begun to cut out due to the osteopenic bone of the vertebral. These pins were removed and their tracts were tamponaded with bone was. Due to concern for the pullout/failure potential of a long construct fixed into osteopenic bone, we elected not to additionally perform a C6-C7 procedure. The MRI revealed adequate space available for the spinal cord at the level. This in combination with a [id number] blood loss led us to make this decision A 29-mm plate was utilized with 2 proximal, 2 central, and 2 distal screws measuring 12 mm to provide solid fixation. This, too, was demonstrated with a plate-phipps once all instrumentation was satisfactorily seated. The screws were then locked using the plate-screw locking mechanism. Fluoroscopic images in the AP and lateral plane showed implants to be in good position and with good overall alignment of the cervical spine. Throughout the case, copious irrigation was performed, and hemostasis was assured. The wound was closed primarily using 2-0 Vicryl and 3-0 Biosyn sutures. A sterile compressive dressing was applied. Sponge and needle counts were correct at the end of the case, and I, the attending surgeon, was present and scrubbed throughout the case. The patient was then extubated by the anesthesia staff without incident or complications and was then transferred to the recovery room in stable condition having tolerated the procedure well. OVERALL COMMENTS: Overall the case went well MD KRISTINA Lopez/[id number] MTDD
--- NOTE | 2019-05-07 15:54 | PATH ---
Surgical Pathology Report Patient Name: JESIKA KING [facility]. Rec. #: [id number] /Age/Gender: 1955 (Age: 64) / F Account: [id number] [facility] 05/05[facility]2019 Received: 05/06/2019 Reported: 05/07/2019 Physicians: Kal Long M.D. Specimen(s) Received DISC C4-C5/C5-C6 Clinical History Cervical disc disorder Final Diagnosis DISC, C4-C5/C5-6, ANTERIOR CERVICAL DISC FUSION: BENIGN INTERVERTEBRAL DISC TISSUE. Electronically Signed Demetrice Joe M.D. Gross Description Received in formalin labeled "disc C4-C5/C5-C6," is a 3.3 x 3.0 x 0.3 cm aggregate of taylor fragments of fibrocartilaginous tissue. A exhibit display representative portion is submitted in one cassette. /05/06/2019 [place]05/06/2019
== END 2019-05-06 14:00 | disposition home or self-care (01) | DRG 472 ==
LOC: JSAMEDAYSX 11:25 → JICU 22:52
PROVIDERS: ADMIT Orthopaedic Surgery Adult Reconstructive Orthopaedic Surgery; ATTEND Orthopaedic Surgery Adult Reconstructive Orthopaedic Surgery
PROC: 0RG2070 Fusion of 2 or more Cervical Vertebral Joints with Autologous Tissue Substitute, Anterior Approach, Anterior Column, Open Approach (ICD-10-PCS; 2019-05-05)
PROC: 0RB30ZZ Excision of Cervical Vertebral Disc, Open Approach (ICD-10-PCS; 2019-05-05)
PROC: 00NW0ZZ Release Cervical Spinal Cord, Open Approach (ICD-10-PCS; 2019-05-05)
PROC: B01BZZZ Fluoroscopy of Spinal Cord (ICD-10-PCS; 2019-05-05)
PROC: 0RG20A0 Fusion of 2 or more Cervical Vertebral Joints with Interbody Fusion Device, Anterior Approach, Anterior Column, Open Approach (ICD-10-PCS; principal; 2019-05-05 13:00)
DX: M48.02 Spinal stenosis, cervical region (principal); M50.022 Cervical disc disorder at C5-C6 level with myelopathy; M50.021 Cervical disc disorder at C4-C5 level with myelopathy; M50.121 Cervical disc disorder at C4-C5 level with radiculopathy; M50.122 Cervical disc disorder at C5-C6 level with radiculopathy; I25.10 Atherosclerotic heart disease of native coronary artery without angina pectoris; Z85.3 Personal history of malignant neoplasm of breast; E03.9 Hypothyroidism, unspecified; M79.7 Fibromyalgia; E78.5 Hyperlipidemia, unspecified; M81.0 Age-related osteoporosis without current pathological fracture; M85.80 Other specified disorders of bone density and structure, unspecified site; R29.6 Repeated falls
CPT/HCPCS: 36415; 76000-TC-FY; 80048; 83735; 85027; 85610; 85730; 86850; 86900; 86901; 88304-TC; 94760; 97116-GP; 97161-GP; J0131; J1100; J1644

== ENCOUNTER 2020-08-04 05:57 | Day surgery (SDC) | payer OTHER ==
[2020-08-01 12:38] VITALS: BMI 28.3
[2020-08-04] MEDS ORDERED: MIDAZOLAM HCL 2 MG/2 ML SINGLE DOSE VIAL ONE (06:45)
[2020-08-04] MEDS ORDERED: ROPIVACAINE HCL 0.5% 30ML VIAL ONE (06:45)
[2020-08-04] MEDS ORDERED: PROPOFOL 20 ML ONE ×2 (07:47)
[2020-08-04] MEDS ORDERED: SUCCINYLCHOLINE CHLORIDE 200 MG/10 ML SYRINGE ONE (07:48)
[2020-08-04] MEDS ORDERED: EPHEDRINE SULFATE/0.9% NACL/PF 50 MG/10 ML SYRINGE NR ONE (07:49)
[2020-08-04] MEDS ORDERED: DEXAMETHASONE SOD PHOSPHATE 4 MG/1 ML VIAL ONE (09:01)
[2020-08-04] MEDS ORDERED: ceFAZolin SODIUM 1 GM VIAL ONE (09:01)
[2020-08-04] MEDS ORDERED: ONDANSETRON 4 MG/2 ML VIAL ONE (09:01)
[2020-08-04] MEDS ORDERED: KETOROLAC TROMETHAMINE 30 MG/1 ML VIAL ONE (09:01)
[2020-08-04] MEDS ORDERED: oxyCODONE HCL 5 MG TABLET PO PRN ×2 (09:30)
[2020-08-04] MEDS ORDERED: LACTATED RINGERS SOLUTION 1,000 ML IV SCH (09:30)
[2020-08-04] MEDS ORDERED: ONDANSETRON 4 MG/2 ML VIAL IVPUSH PRN (09:30)
[2020-08-04] MEDS ORDERED: ACETAMINOPHEN 325 MG TABLET (FP) PO PRN (09:30)
[2020-08-04] MEDS ORDERED: TRANEXAMIC ACID 1000 MG/10 ML VIAL ONE (09:56)
--- NOTE | 2020-08-04 10:05 | OP ---
Operative Note - Note: Operative Date: 08/04/20 Pre-Operative Diagnosis: Left Impingement Shoulder with Rotator Cuff Tear Operation: Excision Arthroplsty AC joint Acromioplasty Repair rotator cuff Findings: Rotator cuff tear with impingement Surgeon: Kareem Long Geotechnical Field Technician: Shyann Casanova Anesthesia: General Specimens Removed: Lateral clavicle Acromion Estimated Blood Loss (mls): 20 Operative Report Dictated: Yes
--- NOTE | 2020-08-04 10:14 | PN ---
Progress Note (short form) - Note Progress Note: 65F s/p LEFT shoulder open Lakesha procedure (distal claviculectomy), Neer Decompression (CA ligament release and acromioplasty), and primary rotator cuff tear (partial thickness, bursal-sided) POD #0. -Pain control: Duexis, Percocet ordered to patient's pharmacy. -Incentive spirometry. -No chemical DVT PPx. -LUE sling. -Begin LEFT shoulder pendulum swings when pain controlled. -Daily LEFT elbow, wrist & hand ROM. -Keep dressing clean & dry. -f/u in [facility] within 7-10 days; call for appointment; . Kareem Long MD (Orthopaedic Surgery).
[2020-08-04 11:36] VITALS: TEMP 97.7
[2020-08-04 12:24] VITALS: BP 124/78; PULSE 60
--- NOTE | 2020-08-04 13:07 | OP ---
DATE OF OPERATION: DATE OF DICTATION: 08/04/2020 SURGEON: Kareem Long MD BISQUE CLEANER: Kal Long MD PREOPERATIVE DIAGNOSIS: Impingement syndrome, left shoulder, with associated rotator cuff tear. POSTOPERATIVE DIAGNOSIS: Impingement syndrome, left shoulder, with associated rotator cuff tear. OPERATION PERFORMED: Left shoulder open: 1. Distal claviculectomy. (37637) 2. Acromioplasty & CA ligament release. (25277) 3. Repair of rotator cuff. (76148) 4. Excision arthroplasty AC joint ANESTHESIA: Conscious sedation with scalene block. OPERATION DETAILS: Patient correctly identified, brought to the operating room. Timeout was called. Imaging was available for intraoperative evaluation. The left upper limb and shoulder were prepped with Betadine scrub solution, wiped off with alcohol, DuraPrep applied, a free drape applied. The patient was positioned in a beach chair position. The incision was made in the lines of Maia from the tip of the acromion to the tip of the coracoid. This exposed the clavicle very clearly, that was the distal end of the clavicle. After dissection of the soft tissues off the superior surface of the clavicle, the joint identified accurately. The joint was incised with a 15-blade knife, 2 sharp Hohmanns placed, one cranial, one caudal to the undersurface of the clavicle, and a beveled osteotomy performed of the distal 1 cm of the clavicle with an oscillating saw. Small cuff of tissue was resected off the anterior lip of the acromion. A blunt Hohmann was placed on the undersurface of the acromion, leaving on the humeral head, and an acromioplasty very effectively performed, freeing the subacromial space completely. Adhesions were broke down with digital palpation. The CA ligament was attended to by transecting the CA ligament simply by retracting the deltoid with the Army-Blessing, not splitting the deltoid, and a Metzenbaum scissors incising the actual CA ligament, bringing about a complete freeing of the anterior aspect of the humeral head. The rotator cuff was clearly visualized with full range of movement. Some adhesions were broken in doing this and a full range of movement established, but the small tear noted in the midsection approximately 3 mm from the footprint, the edges were excised and a 1 Vicryl suture brought about complete closing of this tear. The wounds were thoroughly lavaged. Closure: Capsule was imbricated into the excision arthroplasty site of the distal resection of the clavicle, subcutaneous tissue 2-0 Vicryl, skin 3-0 Monocryl with Steri-Strips. No complications. MD KRISTINA Ortega/[id number] MTDD
--- NOTE | 2020-08-09 14:54 | PATH ---
Surgical Pathology Report Patient Name: JESIKA KING [facility]. Rec. #: [id number] /Age/Gender: 1955 (Age: 65) / F Account: [id number] Location: [facility] Taken: 08/04/2020 Received: 08/04/2020 Reported: 08/09/2020 Physicians: Kareem Long M.D. Specimen(s) Received EXCISION ARTHROPLASTY CLAVICLE Clinical History Impingement syndrome of left shoulder Final Diagnosis EXCISION ARTHROPLASTY CLAVICLE: PORTIONS OF BONE WITH TRILINEAGE HEMATOPOIETIC MARROW SHOWING FOCAL DEGENERATIVE CHANGE. Electronically Signed Lexi Santiago M.D. Gross Description Received in formalin labeled "excision arthroplasty clavicle," are 2 taylor-yellow portions of bone measuring 2.3 x 1.0 x 0.4 cm and 2.3 x 1.8 x 1.1 cm. Janitorial Supervisor sections are submitted in one cassette, following decalcification. /08/08/2020 [facility]/08/08/2020
== END 2020-08-04 12:24 | disposition home or self-care (01) ==
LOC: FASU 05:57
PROVIDERS: ATTEND Orthopaedic Surgery Orthopaedic Surgery of the Spine
PROC: 0MN20ZZ Release Left Shoulder Bursa and Ligament, Open Approach (ICD-10-PCS; 2020-08-04)
PROC: 0LQ20ZZ Repair Left Shoulder Tendon, Open Approach (ICD-10-PCS; 2020-08-04)
PROC: 0PBB0ZZ Excision of Left Clavicle, Open Approach (ICD-10-PCS; principal; 2020-08-04 09:27)
DX: M75.102 Unspecified rotator cuff tear or rupture of left shoulder, not specified as traumatic (principal); M75.42 Impingement syndrome of left shoulder
CPT/HCPCS: 88304-TC; 88311-TC; 94760